=== PATIENT | female | born 1980 | race Caucasian/White ===

== ENCOUNTER 2017-07-24 05:12 | Emergency (ER) | payer MEDICAID ==
[2017-07-24 05:14] VITALS: BMI 26.6
[2017-07-24] MEDS ORDERED: Sodium Chloride 0.9% 1,000 ML IV STA (05:26)
[2017-07-24] MEDS ORDERED: Naloxone 0.4 mg/ml Inj (Adult) IV STA (05:26)
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
[2017-07-24 05:59] LABS: BASO # 0.02 K/mm3 (0.0-2.0); BASO % 0.2 % (0.0-3.0); EOS # 0.1 (0.0-0.7); GRAN # 6.95 (1.4-6.5); GRAN % 66.1 % (50.0-68.0); HEMATOCRIT 38.4 % (36.0-48.0); LYMPH # 2.8 (1.2-3.4); LYMPH % 26.3 % (22.0-35.0); MEAN CELL VOLUME 87.1 fl (80.0-105.0); MEAN CORPUSCULAR HEMOGLOBIN 29.3 pg (25.0-35.0); MEAN CORPUSCULAR HGB CONC 33.6 g/dl (31.0-37.0); MEAN PLATELET VOLUME 8.9 fl (7.0-11.0); MONO # 0.7 (0.1-0.6); MONO % 6.4 % (1.0-6.0); RED CELL DISTRIBUTION WIDTH 13.7 % (11.5-14.5); WHITE BLOOD COUNT 10.5 10^3/ul (4.5-11.0)
[2017-07-24 06:08] LABS: BLOOD UREA NITROGEN 12 mg/dL (7-21); CALCIUM 8.9 mg/dL (8.4-10.5); CARBON DIOXIDE 29 mmol/L (21-33); CHLORIDE 106 mmol/L (98-107); GFR AFRICAN-AMERICAN > 60; GLUCOSE,RANDOM 90 mg/dL (70-110); POTASSIUM 3.9 mmol/L (3.6-5.0); SODIUM 143 mmol/L (132-148)
[2017-07-24 10:05] VITALS: PULSE 75; RESP 20; TEMP 98
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
--- NOTE | 2017-07-24 13:17 | RAD ---
HISTORY: pysch COMPARISON: None available. TECHNIQUE: Chest, one view. FINDINGS: Examination limited by habitus. LUNGS: No focal consolidation. Please note that chest x-ray has limited sensitivity for the detection of pulmonary masses. PLEURA: No significant pleural effusion identified. No definite pneumothorax . CARDIOVASCULAR: Heart size appears within normal limits. OSSEOUS STRUCTURES: No acute osseous abnormality identified. VISUALIZED UPPER ABDOMEN: Unremarkable. OTHER FINDINGS: None. IMPRESSION: No focal consolidation, significant pleural effusion, or definite pneumothorax identified.
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
[2017-07-24 13:21] VITALS: BP 124/71; O2SAT 99
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
== END 2017-07-24 13:55 | disposition home or self-care (01) ==
LOC: ED 05:12
DX: F19.10 Other psychoactive substance abuse, uncomplicated (principal); Z04.1 Encounter for examination and observation following transport accident; V87.7XXA Person injured in collision between other specified motor vehicles (traffic), initial encounter; Y92.410 Unspecified street and highway as the place of occurrence of the external cause
CPT/HCPCS: 70450; 71010; 73503; 73551; 73590; 73700; 80048; 80320; 80324; 80345; 80346; 80349; 80353; 80358; 80361; 82550; 82553; 82948; 83992; 84702; 84703; 85025; 87389; 96360; 99285; J7040

== ENCOUNTER 2017-07-24 15:36 | Inpatient (IN) | payer MEDICAID ==
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
[2017-07-24 18:21] LABS: BASO # 0.02 K/mm3 (0.0-2.0); BASO % 0.2 % (0.0-3.0); EOS # 0.2 (0.0-0.7); EOS % 2.1 % (1.5-5.0); GRAN # 6.41 (1.4-6.5); GRAN % 67.8 % (50.0-68.0); HEMATOCRIT 37.5 % (36.0-48.0); LYMPH # 2.2 (1.2-3.4); LYMPH % 22.8 % (22.0-35.0); MEAN CELL VOLUME 88.4 fl (80.0-105.0); MEAN CORPUSCULAR HEMOGLOBIN 29.5 pg (25.0-35.0); MEAN CORPUSCULAR HGB CONC 33.3 g/dl (31.0-37.0); MEAN PLATELET VOLUME 8.7 fl (7.0-11.0); MONO # 0.7 (0.1-0.6); MONO % 7.1 % (1.0-6.0); WHITE BLOOD COUNT 9.5 10^3/ul (4.5-11.0)
[2017-07-24 19:22] LABS: TROPONIN I < 0.01 ng/mL
[2017-07-24 19:26] LABS: BLOOD UREA NITROGEN 12 mg/dL (7-21); GFR AFRICAN-AMERICAN > 60; GLUCOSE,RANDOM 55 mg/dL (70-110)
[2017-07-24 19:27] LABS: ALB/GLOB RATIO 1.3 (1.1-1.8); ALT/SGPT 120 U/L (7-56); AST/SGOT 154 U/L (14-36); BILIRUBIN,TOTAL 1.2 mg/dL (0.2-1.3); CALCIUM 8.8 mg/dL (8.4-10.5); CARBON DIOXIDE 26 mmol/L (21-33); CHLORIDE 105 mmol/L (98-107); POTASSIUM 3.5 mmol/L (3.6-5.0); SODIUM 141 mmol/L (132-148)
[2017-07-24 19:28] LABS: ALKALINE PHOSPHATASE 120 U/L (38-126)
--- NOTE | 2017-07-24 19:29 | ED PDOC ---
Physical Exam Vital Signs Temp Pulse Resp BP Pulse Ox 07/25/17 06:21 86 16 114/76 99 07/25/17 02:01 98.0 F 83 16 109/62 99 07/24/17 23:00 98.1 F 86 16 127/76 99 07/24/17 19:09 98 F 75 19 129/71 99 07/24/17 18:35 98 F 72 07/24/17 15:37 98 F 87 18 131/66 100 Medical Decision Making ED Course and Treatment: 07/24/17 19:15 The patient was transferred over to [facility] by Dr. Hernandez, the patient is currently pending evaluation by PES. Pt. with a hx. of depression and suicidal ideation. 07/25/17 05:05 Pt seen and evaluated by PES screener. Psychiatrist requesting [facility] screening. 07/25/17 07:[address] Hernandez, pending [facility] PES screening. - Lab Interpretations Lab Results: 07/24/17 18:10 07/24/17 18:10 Lab Results 07/24/17 20:00: Urine HCG, Qual Negative 07/24/17 20:00: Urine Opiates Screen Positive H, Urine Methadone Screen Negative , Ur Barbiturates Screen Negative, Ur Phencyclidine Scrn Negative, Ur Amphetamines Screen Negative, U Benzodiazepines Scrn Positive H, U Oth Cocaine Metabols Negative, U Cannabinoids Screen Negative 07/24/17 20:00: Urine Color Yellow, Urine Appearance Clear, Urine pH 6.0, Ur Specific [place] <= 1.005, Urine Protein Negative, Urine Glucose (UA) Negative, Urine Ketones Negative, Urine Blood Negative, Urine Nitrate Negative, Urine Bilirubin Negative, Urine Urobilinogen 0.2, Ur Leukocyte Esterase Trace H, Urine RBC 0 - 2, Urine WBC 2 - 5, Ur Epithelial Cells 6 - 8, Amorphous Sediment Few, Urine Bacteria Mod 07/24/17 18:10: Alcohol, Quantitative < 10 07/24/17 18:10: Salicylates < 1 L, Acetaminophen < 10.0 L 07/24/17 18:10: Sodium 141, Potassium 3.5 L, Chloride 105, Carbon Dioxide 26, Anion Gap 14, BUN 12, Creatinine 0.7, Est GFR ( Amer) > 60, Est GFR (Non- Af Amer) > 60, Random Glucose 55 L, Calcium 8.8, Total Bilirubin 1.2, AST 154 H , ALT 120 H, Alkaline Phosphatase 120, Lactate Dehydrogenase 906 H, Total Creatine Kinase 2728 H, CK-MB (CK-2) 30.7 H, CK-MB (CK-2) % 1.1 L, Troponin I < 0.01, Total Protein 7.0, Albumin 3.9, Globulin 3.1, Albumin/Globulin Ratio 1.3 07/24/17 18:10: WBC 9.5, RBC 4.24, Hgb 12.5, Hct 37.5, MCV 88.4, MCH 29.5, MCHC 33.3, RDW 14.0, Plt Count 264, MPV 8.7, Gran % 67.8, Lymph % (Auto) 22.8, [place] % (Auto) 7.1 H, Eos % (Auto) 2.1, Baso % (Auto) 0.2, Gran # 6.41, Lymph # 2.2, [place] # 0.7 H, Eos # 0.2, Baso # 0.02 - Medication Orders Current Medication Orders: Discontinued Medications Lorazepam (Ativan) 2 mg IM ONCE ONE PRN Reason: Protocol Stop: 07/24/17 17:14 Last Admin: 07/24/17 17:22 Dose: 2 mg IM Administration Charges Document 07/24/17 17:22 EWO (Rec: 07/24/17 17:23 [facility] [id number]) Injection Site MAR Injection Site Left Vastus Lateralis Charges for Administration # of IM Administrations 1 Ziprasidone (Geodon Inj) 20 mg IM STAT STA PRN Reason: Protocol Stop: 07/24/17 17:14 Last Admin: 07/24/17 17:22 Dose: 20 mg IM Administration Charges Document 07/24/17 17:22 EWO (Rec: 07/24/17 17:22 [facility] [id number]) Injection Site MAR Injection Site Right Vastus Lateralis Charges for Administration # of IM Administrations 1 - Scribe Statement The provider has reviewed the documentation as recorded by the Scribchristina Morton Provider Scribe Attestation: All medical record entries made by the Scribe were at my direction and personally dictated by me. I have reviewed the chart and agree that the record accurately reflects my personal performance of the history, physical exam, medical decision making, and the department course for this patient. I have also personally directed, reviewed, and agree with the discharge instructions and disposition. Disposition/Present on Arrival - Present on Arrival Any Indicators Present on Arrival: No History of DVT/PE: No History of Uncontrolled Diabetes: No Urinary Catheter: No History of Decub. Ulcer: No History Surgical Site Infection Following: None - Disposition Have Diagnosis and Disposition been Completed?: No Diagnosis: Depression Disposition Time: 07:00 Condition: STABLE Referrals: Ezra Sierra Renolan, [Primary Care Provider] - Follow up with primary Forms: [employer] (Icelandic)
[2017-07-24 20:21] LABS: URINE BILIRUBIN NEGATIVE (NEGATIVE); URINE BLOOD NEGATIVE (NEGATIVE); URINE GLUCOSE (UA) NEGATIVE (NEGATIVE); URINE KETONE NEGATIVE (NEGATIVE); URINE LEUKOCYTE ESTERASE TRACE Leu/uL (NEGATIVE); URINE PROTEIN NEGATIVE mg/dL (<30 mg/dL); URINE UROBILINOGEN 0.2 E.U./dL (<1 E.U./dL)
[2017-07-24 20:22] LABS: URINE APPEARANCE CLEAR (CLEAR); URINE COLOR YELLOW (YELLOW)
[2017-07-24 20:34] LABS: URINE BACTERIA MOD (NEG); URINE RBC 0 - 2 /hpf (0-2)
[2017-07-24 20:35] LABS: URINE AMORPHOUS SEDIMENT FEW
--- NOTE | 2017-07-25 07:11 | ED PDOC ---
Physical Exam Vital Signs Reviewed: Yes Vital Signs Temp Pulse Resp BP Pulse Ox 07/25/17 07:40 98.5 F 96 H 18 105/53 L 100 07/25/17 06:21 86 16 114/76 99 07/25/17 02:01 98.0 F 83 16 109/62 99 07/24/17 23:00 98.1 F 86 16 127/76 99 07/24/17 19:09 98 F 75 19 129/71 99 07/24/17 18:35 98 F 72 07/24/17 15:37 98 F 87 18 131/66 100 Temperature: Afebrile Blood Pressure: Normal Pulse: Regular Respiratory Rate: Normal Appearance: Positive for: Well-Appearing, Non-Toxic Pain Distress: None Mental Status: Positive for: Alert and Oriented X 3 Medical Decision Making ED Course and Treatment: 07/25/17 07:05 Case endorsed to me by Dr. Quispe, pending [facility] PES screening. 07/25/17 07:[address] Craig who is aware and agrees with the plan. Accepts patient to remote Telemetry for Rhabdomyolysis. - Lab Interpretations Lab Results: 07/24/17 18:10 07/24/17 18:10 Lab Results 07/24/17 20:00: Urine HCG, Qual Negative 07/24/17 20:00: Urine Opiates Screen Positive H, Urine Methadone Screen Negative , Ur Barbiturates Screen Negative, Ur Phencyclidine Scrn Negative, Ur Amphetamines Screen Negative, U Benzodiazepines Scrn Positive H, U Oth Cocaine Metabols Negative, U Cannabinoids Screen Negative 07/24/17 20:00: Urine Color Yellow, Urine Appearance Clear, Urine pH 6.0, Ur Specific [place] <= 1.005, Urine Protein Negative, Urine Glucose (UA) Negative, Urine Ketones Negative, Urine Blood Negative, Urine Nitrate Negative, Urine Bilirubin Negative, Urine Urobilinogen 0.2, Ur Leukocyte Esterase Trace H, Urine RBC 0 - 2, Urine WBC 2 - 5, Ur Epithelial Cells 6 - 8, Amorphous Sediment Few, Urine Bacteria Mod 07/24/17 18:10: Alcohol, Quantitative < 10 07/24/17 18:10: Salicylates < 1 L, Acetaminophen < 10.0 L 07/24/17 18:10: Sodium 141, Potassium 3.5 L, Chloride 105, Carbon Dioxide 26, Anion Gap 14, BUN 12, Creatinine 0.7, Est GFR ( Amer) > 60, Est GFR (Non- Af Amer) > 60, Random Glucose 55 L, Calcium 8.8, Total Bilirubin 1.2, AST 154 H , ALT 120 H, Alkaline Phosphatase 120, Lactate Dehydrogenase 906 H, Total Creatine Kinase 2728 H, CK-MB (CK-2) 30.7 H, CK-MB (CK-2) % 1.1 L, Troponin I < 0.01, Total Protein 7.0, Albumin 3.9, Globulin 3.1, Albumin/Globulin Ratio 1.3 07/24/17 18:10: WBC 9.5, RBC 4.24, Hgb 12.5, Hct 37.5, MCV 88.4, MCH 29.5, MCHC 33.3, RDW 14.0, Plt Count 264, MPV 8.7, Gran % 67.8, Lymph % (Auto) 22.8, [place] % (Auto) 7.1 H, Eos % (Auto) 2.1, Baso % (Auto) 0.2, Gran # 6.41, Lymph # 2.2, [place] # 0.7 H, Eos # 0.2, Baso # 0.02 I have reviewed the lab results: Yes - Medication Orders Current Medication Orders: Sodium Chloride (Sodium Chloride 0.9%) 1,000 mls @ 100 mls/hr IV .Q10H MOSHE Last Admin: 07/25/17 07:45 Dose: 100 mls/hr eMAR Start Stop Document 07/25/17 07:45 RG (Rec: 07/25/17 07:45 RG [id number]) Intravenous Solution Start Date 07/25/17 Start Time 07:21 End Date 07/25/17 Discontinued Medications Lorazepam (Ativan) 2 mg IM ONCE ONE PRN Reason: Protocol Stop: 07/24/17 17:14 Last Admin: 07/24/17 17:22 Dose: 2 mg IM Administration Charges Document 07/24/17 17:22 EWO (Rec: 07/24/17 17:23 EWO [id number]) Injection Site MAR Injection Site Left Vastus Lateralis Charges for Administration # of IM Administrations 1 Ziprasidone (Geodon Inj) 20 mg IM STAT STA PRN Reason: Protocol Stop: 07/24/17 17:14 Last Admin: 07/24/17 17:22 Dose: 20 mg IM Administration Charges Document 07/24/17 17:22 YESENIA (Rec: 07/24/17 17:22 YESENIA [id number]) Injection Site MAR Injection Site Right Vastus Lateralis Charges for Administration # of IM Administrations 1 - Scribe Statement The provider has reviewed the documentation as recorded by the Bobbyibe Monique Doe Provider Scribe Attestation: All medical record entries made by the Bobbyibe were at my direction and personally dictated by me. I have reviewed the chart and agree that the record accurately reflects my personal performance of the history, physical exam, medical decision making, and the department course for this patient. I have also personally directed, reviewed, and agree with the discharge instructions and disposition. Disposition/Present on Arrival - Present on Arrival Any Indicators Present on Arrival: No History of DVT/PE: No History of Uncontrolled Diabetes: No Urinary Catheter: No History of Decub. Ulcer: No History Surgical Site Infection Following: None - Disposition Have Diagnosis and Disposition been Completed?: Yes Diagnosis: Depression Disposition: HOSPITALIZED Disposition Time: 07:00 Condition: STABLE
[2017-07-25] MEDS ORDERED: Sodium Chloride 0.9% 1,000 ML IV SCH (07:15)
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
[2017-07-25] MEDS: Sodium Chloride 0.9% 1,000 ML IV SCH ×2 (08:45→23:15)
[2017-07-25] MEDS ORDERED: Potassium Chloride 20 mEq ER Tab PO STA (09:12)
[2017-07-25 09:51] LABS: ALB/GLOB RATIO 1.2 (1.1-1.8); ALKALINE PHOSPHATASE 106 U/L (38-126); ALT/SGPT 109 U/L (7-56); AST/SGOT 113 U/L (14-36); BILIRUBIN,TOTAL 0.7 mg/dL (0.2-1.3); BLOOD UREA NITROGEN 12 mg/dL (7-21); CALCIUM 8.6 mg/dL (8.4-10.5); CARBON DIOXIDE 24 mmol/L (21-33); CHLORIDE 107 mmol/L (98-107); GFR AFRICAN-AMERICAN > 60; GLUCOSE,RANDOM 84 mg/dL (70-110); MAGNESIUM 1.7 mg/dL (1.7-2.2); POTASSIUM 3.5 mmol/L (3.6-5.0); SODIUM 140 mmol/L (132-148); TOTAL PROTEIN 6.6 g/dL (5.8-8.3)
[2017-07-25 09:56] LABS: BASO # 0.02 K/mm3 (0.0-2.0); BASO % 0.2 % (0.0-3.0); EOS # 0.3 (0.0-0.7); EOS % 3.2 % (1.5-5.0); GRAN # 5.57 (1.4-6.5); GRAN % 67.9 % (50.0-68.0); HEMATOCRIT 38.3 % (36.0-48.0); LYMPH # 1.7 (1.2-3.4); LYMPH % 20.3 % (22.0-35.0); MEAN CELL VOLUME 87.8 fl (80.0-105.0); MEAN CORPUSCULAR HEMOGLOBIN 28.9 pg (25.0-35.0); MEAN CORPUSCULAR HGB CONC 32.9 g/dl (31.0-37.0); MEAN PLATELET VOLUME 9.4 fl (7.0-11.0); MONO # 0.7 (0.1-0.6); MONO % 8.4 % (1.0-6.0); RED CELL DISTRIBUTION WIDTH 14.2 % (11.5-14.5); WHITE BLOOD COUNT 8.2 10^3/ul (4.5-11.0)
[2017-07-25 12:46] VITALS: BMI 35.6
[2017-07-25 14:14] VITALS: PULSE 100; O2SAT 100
--- NOTE | 2017-07-25 16:10 | CARD ---
APPROVED REPORT EKG Measurement Heart [id number] <Conclusion> Normal sinus rhythm T wave abnormality, nonspecific Prolonged QT Abnormal ECG
[2017-07-25 17:08] VITALS: BP 122/79; RESP 18; TEMP 98.5
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
[2017-07-26] MEDS: Sodium Chloride 0.9% 1,000 ML IV SCH (05:11)
[2017-07-26 07:21] LABS: BASO # 0.01 K/mm3 (0.0-2.0); BASO % 0.1 % (0.0-3.0); EOS # 0.2 (0.0-0.7); EOS % 3.2 % (1.5-5.0); GRAN % 66.6 % (50.0-68.0); LYMPH # 1.7 (1.2-3.4); LYMPH % 22.2 % (22.0-35.0); MEAN CELL VOLUME 87.6 fl (80.0-105.0); MEAN CORPUSCULAR HEMOGLOBIN 28.7 pg (25.0-35.0); MEAN CORPUSCULAR HGB CONC 32.8 g/dl (31.0-37.0); MONO # 0.6 (0.1-0.6); MONO % 7.9 % (1.0-6.0); RED CELL DISTRIBUTION WIDTH 14.2 % (11.5-14.5); WHITE BLOOD COUNT 7.5 10^3/ul (4.5-11.0)
[2017-07-26] MEDS ORDERED: Multivitamin Vitamin B Complex (Nephro-Vite) Tab PO SCH (08:00)
[2017-07-26 08:01] LABS: ALB/GLOB RATIO 1.1 (1.1-1.8); ALKALINE PHOSPHATASE 82 U/L (38-126); ALT/SGPT 98 U/L (7-56); AST/SGOT 92 U/L (14-36); BILIRUBIN,TOTAL 0.5 mg/dL (0.2-1.3); BLOOD UREA NITROGEN 8 mg/dL (7-21); CALCIUM 8.4 mg/dL (8.4-10.5); CARBON DIOXIDE 23 mmol/L (21-33); CHLORIDE 110 mmol/L (98-107); GFR AFRICAN-AMERICAN > 60; GLUCOSE,RANDOM 92 mg/dL (70-110); POTASSIUM 4.4 mmol/L (3.6-5.0); SODIUM 138 mmol/L (132-148)
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
--- NOTE | 2017-07-26 15:30 | RAD ---
HISTORY: r/o pneumonia COMPARISON: 07/24/2017 FINDINGS: LUNGS: No active pulmonary disease. PLEURA: No significant pleural effusion identified, no pneumothorax apparent. CARDIOVASCULAR: Normal. OSSEOUS STRUCTURES: No significant abnormalities. VISUALIZED UPPER ABDOMEN: Normal. OTHER FINDINGS: None. IMPRESSION: No active disease.
--- NOTE | 2017-07-26 20:13 | CP.PCM.DIS ---
<Lopez Asher - Last Filed: 07/26/17 20:01> Provider - Provider Date of Admission: 07/25/17 07:19 Attending physician: Mike Huff MD Consults: Psych: Dr. Romero/Rubi Time Spent in preparation of Discharge (in minutes): 45 Diagnosis - Discharge Diagnosis (1) Rhabdomyolysis Status: Acute (2) Anxiety Status: Acute (3) Suicidal ideation Status: Acute (4) Depression Status: Acute Hospital Course - Lab Results Lab Results: Most Recent Lab Values WBC 7.5 10^3/ul (4.5-11.0) 07/26/17 07:00 RBC 4.11 10^6/uL (3.5-6.1) 07/26/17 07:00 Hgb 11.8 g/dL (12.0-16.0) L 07/26/17 07:00 Hct 36.0 % (36.0-48.0) 07/26/17 07:00 MCV 87.6 fl (80.0-105.0) 07/26/17 07:00 MCH 28.7 pg (25.0-35.0) 07/26/17 07:00 MCHC 32.8 g/dl (31.0-37.0) 07/26/17 07:00 RDW 14.2 % (11.5-14.5) 07/26/17 07:00 Plt Count 280 10^3/uL (120.0-450.0) 07/26/17 07:00 MPV 9.0 fl (7.0-11.0) 07/26/17 07:00 Gran % 66.6 % (50.0-68.0) 07/26/17 07:00 Lymph % (Auto) 22.2 % (22.0-35.0) 07/26/17 07:00 Davidson % (Auto) 7.9 % (1.0-6.0) H 07/26/17 07:00 Eos % (Auto) 3.2 % (1.5-5.0) 07/26/17 07:00 Baso % (Auto) 0.1 % (0.0-3.0) 07/26/17 07:00 Gran # 5.00 (1.4-6.5) 07/26/17 07:00 Lymph # 1.7 (1.2-3.4) 07/26/17 07:00 Davidson # 0.6 (0.1-0.6) 07/26/17 07:00 Eos # 0.2 (0.0-0.7) 07/26/17 07:00 Baso # 0.01 K/mm3 (0.0-2.0) 07/26/17 07:00 Sodium 138 mmol/L (132-148) 07/26/17 07:00 Potassium 4.4 mmol/L (3.6-5.0) 07/26/17 07:00 Chloride 110 mmol/L (98-107) H 07/26/17 07:00 Carbon Dioxide 23 mmol/L (21-33) 07/26/17 07:00 Anion Gap 10 (10-20) 07/26/17 07:00 BUN 8 mg/dL (7-21) 07/26/17 07:00 Creatinine 0.7 mg/dl (0.7-1.2) 07/26/17 07:00 Est GFR ( Amer) > 60 07/26/17 07:00 Est GFR (Non-Af Amer) > 60 07/26/17 07:00 Random Glucose 92 mg/dL (70-110) 07/26/17 07:00 Calcium 8.4 mg/dL (8.4-10.5) 07/26/17 07:00 Magnesium 1.7 mg/dL (1.7-2.2) 07/25/17 07:21 Total Bilirubin 0.5 mg/dL (0.2-1.3) 07/26/17 07:00 AST 92 U/L (14-36) H 07/26/17 07:00 ALT 98 U/L (7-56) H 07/26/17 07:00 Alkaline Phosphatase 82 U/L (38-126) 07/26/17 07:00 Lactate Dehydrogenase 906 U/L (333-699) H 07/24/17 18:10 Total Creatine Kinase 1297 U/L (35-230) H 07/26/17 15:40 CK-MB (CK-2) 3.4 ng/mL (0.0-3.6) 07/26/17 15:40 CK-MB (CK-2) % 1.1 % (2.5-3.0) L 07/24/17 18:10 Troponin I < 0.01 ng/mL 07/24/17 18:10 Total Protein 6.0 g/dL (5.8-8.3) 07/26/17 07:00 Albumin 3.2 g/dL (3.0-4.8) 07/26/17 07:00 Globulin 2.8 gm/dL 07/26/17 07:00 Albumin/Globulin Ratio 1.1 (1.1-1.8) 07/26/17 07:00 Urine Color Yellow (YELLOW) 07/24/17 20:00 Urine Appearance Clear (CLEAR) 07/24/17 20:00 Urine pH 6.0 (4.7-8.0) 07/24/17 20:00 Ur Specific [place] <= 1.005 (1.005-1.035) 07/24/17 20:00 Urine Protein Negative mg/dL (<30 mg/dL) 07/24/17 20:00 Urine Glucose (UA) Negative mg/dL (NEGATIVE) 07/24/17 20:00 Urine Ketones Negative mg/dL (NEGATIVE) 07/24/17 20:00 Urine Blood Negative (NEGATIVE) 07/24/17 20:00 Urine Nitrate Negative (NEGATIVE) 07/24/17 20:00 Urine Bilirubin Negative (NEGATIVE) 07/24/17 20:00 Urine Urobilinogen 0.2 E.U./dL (<1 E.U./dL) 07/24/17 20:00 Ur Leukocyte Esterase Trace Kathy/uL (NEGATIVE) H 07/24/17 20:00 Urine RBC 0 - 2 /hpf (0-2) 07/24/17 20:00 Urine WBC 2 - 5 /hpf (0-6) 07/24/17 20:00 Ur Epithelial Cells 6 - 8 /hpf (0-5) 07/24/17 20:00 Amorphous Sediment Few 07/24/17 20:00 Urine Bacteria Mod (NEG) 07/24/17 20:00 Urine HCG, Qual Negative (NEGATIVE) 07/24/17 20:00 Salicylates < 1 mg/dL (2.0-20.0) L 07/24/17 18:10 Urine Opiates Screen Positive (NEGATIVE) H 07/24/17 20:00 Urine Methadone Screen Negative (NEGATIVE) 07/24/17 20:00 Acetaminophen < 10.0 ug/ml (10.0-20.0) L 07/24/17 18:10 Ur Barbiturates Screen Negative (NEGATIVE) 07/24/17 20:00 Ur Phencyclidine Scrn Negative (NEGATIVE) 07/24/17 20:00 Ur Amphetamines Screen Negative (NEGATIVE) 07/24/17 20:00 U Benzodiazepines Scrn Positive (NEGATIVE) H 07/24/17 20:00 U Oth Cocaine Metabols Negative (NEGATIVE) 07/24/17 20:00 U Cannabinoids Screen Negative (NEGATIVE) 07/24/17 20:00 Alcohol, Quantitative < 10 mg/dL (0-10) 07/24/17 18:10 Hepatitis A IgM Ab Negative (NEGATIVE) 07/25/17 07:21 Hep Bs Antigen Negative (NEGATIVE) 07/25/17 07:21 Hep B Core IgM Ab Negative (NEGATIVE) 07/25/17 07:21 Hepatitis C Antibody Reactive (NEGATIVE) 07/25/17 07:21 - Hospital Course Hospital Course: 36 yo F with PMH of anxiety, depression, chronic back pain due to herniated disc presented with suicidal ideation, having written a suicide note, noted to also have transaminitis and rhabdomyolysis, for which she was admitted and receiving treatment. Throughout her hospitalization, patient was requesting to leave AMA, pulling her lines and removing her monitor, but was not allowed to leave because of the history of suicidal ideation. [facility] psychiat[facility] was consulted for screening for involuntary admission pending medical clearance. Today, [facility] determined that she did not require involuntary admission, and she was deemed competent to make her own decisions. Patient again requested to leave AMA. Prior to leaving, she was noted to have a slightly swollen tongue, and was given benadryl 50mg PO, in case of an allergic reaction. She was instructed on the benefits of staying for further treatment, versus the potential consequences of leaving, including worsening renal failure, anaphylaxis, withdrawal, and other complications of her medical conditions, up to and including . Patient verbalized understanding and insisted on signing out against medical advice. Patient advised to follow up with her PCP and return to ER for any new or worsening concerns. Discharge Exam - Head Exam Head Exam: ATRAUMATIC, NORMAL INSPECTION, NORMOCEPHALIC - Eye Exam Eye Exam: EOMI, Normal appearance - ENT Exam ENT Exam: Mucous Membranes Moist Additional comments: Patient noted to be mumbling, with slightly swollen tongue. Tolerating secretions well, swallowing her food throughout the day. No respiratory distress. - Neck Exam Neck exam: Full Rom, Normal Inspection - Respiratory Exam Respiratory Exam: Clear to PA & Lateral, NORMAL BREATHING PATTERN - Cardiovascular Exam Cardiovascular Exam: RRR, +S1, +S2 - GI/Abdominal Exam GI & Abdominal Exam: Normal Bowel Sounds, Soft. absent: Tenderness - Extremities Exam Extremities exam: pedal edema (nonpitting) - Back Exam Back exam: absent: CVA tenderness (L), CVA tenderness (R) - Neurological Exam Neurological exam: Alert, Oriented x3 Additional comments: Appropriate insight and judgement - Psychiatric Exam Psychiatric exam: Agitated, Anxious, Normal Affect - Skin Skin Exam: Dry, Intact Discharge Plan - Follow Up Plan Condition: GUARDED Disposition: AGAINST MEDICAL ADVICE <Mike Huff - Last Filed: 07/27/17 07:19> Provider - Provider Date of Admission: 07/25/17 07:19 Attending physician: Mike Huff [facility] Course - Lab Results Lab Results: Most Recent Lab Values WBC 7.5 10^3/ul (4.5-11.0) 07/26/17 07:00 RBC 4.11 10^6/uL (3.5-6.1) 07/26/17 07:00 Hgb 11.8 g/dL (12.0-16.0) L 07/26/17 07:00 Hct 36.0 % (36.0-48.0) 07/26/17 07:00 MCV 87.6 fl (80.0-105.0) 07/26/17 07:00 MCH 28.7 pg (25.0-35.0) 07/26/17 07:00 MCHC 32.8 g/dl (31.0-37.0) 07/26/17 07:00 RDW 14.2 % (11.5-14.5) 07/26/17 07:00 Plt Count 280 10^3/uL (120.0-450.0) 07/26/17 07:00 MPV 9.0 fl (7.0-11.0) 07/26/17 07:00 Gran % 66.6 % (50.0-68.0) 07/26/17 07:00 Lymph % (Auto) 22.2 % (22.0-35.0) 07/26/17 07:00 Davidson % (Auto) 7.9 % (1.0-6.0) H 07/26/17 07:00 Eos % (Auto) 3.2 % (1.5-5.0) 07/26/17 07:00 Baso % (Auto) 0.1 % (0.0-3.0) 07/26/17 07:00 Gran # 5.00 (1.4-6.5) 07/26/17 07:00 Lymph # 1.7 (1.2-3.4) 07/26/17 07:00 Davidson # 0.6 (0.1-0.6) 07/26/17 07:00 Eos # 0.2 (0.0-0.7) 07/26/17 07:00 Baso # 0.01 K/mm3 (0.0-2.0) 07/26/17 07:00 Sodium 138 mmol/L (132-148) 07/26/17 07:00 Potassium 4.4 mmol/L (3.6-5.0) 07/26/17 07:00 Chloride 110 mmol/L (98-107) H 07/26/17 07:00 Carbon Dioxide 23 mmol/L (21-33) 07/26/17 07:00 Anion Gap 10 (10-20) 07/26/17 07:00 BUN 8 mg/dL (7-21) 07/26/17 07:00 Creatinine 0.7 mg/dl (0.7-1.2) 07/26/17 07:00 Est GFR ( Amer) > 60 07/26/17 07:00 Est GFR (Non-Af Amer) > 60 07/26/17 07:00 Random Glucose 92 mg/dL (70-110) 07/26/17 07:00 Calcium 8.4 mg/dL (8.4-10.5) 07/26/17 07:00 Magnesium 1.7 mg/dL (1.7-2.2) 07/25/17 07:21 Total Bilirubin 0.5 mg/dL (0.2-1.3) 07/26/17 07:00 AST 92 U/L (14-36) H 07/26/17 07:00 ALT 98 U/L (7-56) H 07/26/17 07:00 Alkaline Phosphatase 82 U/L (38-126) 07/26/17 07:00 Lactate Dehydrogenase 906 U/L (333-699) H 07/24/17 18:10 Total Creatine Kinase 1297 U/L (35-230) H 07/26/17 15:40 CK-MB (CK-2) 3.4 ng/mL (0.0-3.6) 07/26/17 15:40 CK-MB (CK-2) % 1.1 % (2.5-3.0) L 07/24/17 18:10 Troponin I < 0.01 ng/mL 07/24/17 18:10 Total Protein 6.0 g/dL (5.8-8.3) 07/26/17 07:00 Albumin 3.2 g/dL (3.0-4.8) 07/26/17 07:00 Globulin 2.8 gm/dL 07/26/17 07:00 Albumin/Globulin Ratio 1.1 (1.1-1.8) 07/26/17 07:00 Urine Color Yellow (YELLOW) 07/24/17 20:00 Urine Appearance Clear (CLEAR) 07/24/17 20:00 Urine pH 6.0 (4.7-8.0) 07/24/17 20:00 Ur Specific [place] <= 1.005 (1.005-1.035) 07/24/17 20:00 Urine Protein Negative mg/dL (<30 mg/dL) 07/24/17 20:00 Urine Glucose (UA) Negative mg/dL (NEGATIVE) 07/24/17 20:00 Urine Ketones Negative mg/dL (NEGATIVE) 07/24/17 20:00 Urine Blood Negative (NEGATIVE) 07/24/17 20:00 Urine Nitrate Negative (NEGATIVE) 07/24/17 20:00 Urine Bilirubin Negative (NEGATIVE) 07/24/17 20:00 Urine Urobilinogen 0.2 E.U./dL (<1 E.U./dL) 07/24/17 20:00 Ur Leukocyte Esterase Trace Kathy/uL (NEGATIVE) H 07/24/17 20:00 Urine RBC 0 - 2 /hpf (0-2) 07/24/17 20:00 Urine WBC 2 - 5 /hpf (0-6) 07/24/17 20:00 Ur Epithelial Cells 6 - 8 /hpf (0-5) 07/24/17 20:00 Amorphous Sediment Few 07/24/17 20:00 Urine Bacteria Mod (NEG) 07/24/17 20:00 Urine HCG, Qual Negative (NEGATIVE) 07/24/17 20:00 Salicylates < 1 mg/dL (2.0-20.0) L 07/24/17 18:10 Urine Opiates Screen Positive (NEGATIVE) H 07/24/17 20:00 Urine Methadone Screen Negative (NEGATIVE) 07/24/17 20:00 Acetaminophen < 10.0 ug/ml (10.0-20.0) L 07/24/17 18:10 Ur Barbiturates Screen Negative (NEGATIVE) 07/24/17 20:00 Ur Phencyclidine Scrn Negative (NEGATIVE) 07/24/17 20:00 Ur Amphetamines Screen Negative (NEGATIVE) 07/24/17 20:00 U Benzodiazepines Scrn Positive (NEGATIVE) H 07/24/17 20:00 U Oth Cocaine Metabols Negative (NEGATIVE) 07/24/17 20:00 U Cannabinoids Screen Negative (NEGATIVE) 07/24/17 20:00 Alcohol, Quantitative < 10 mg/dL (0-10) 07/24/17 18:10 Hepatitis A IgM Ab Negative (NEGATIVE) 07/25/17 07:21 Hep Bs Antigen Negative (NEGATIVE) 07/25/17 07:21 Hep B Core IgM Ab Negative (NEGATIVE) 07/25/17 07:21 Hepatitis C Antibody Reactive (NEGATIVE) 07/25/17 07:21 Discharge Plan - Follow Up Plan Patient education suggested?: Yes Attending/Attestation - Attestation I have personally seen and examined this patient.: Yes I have fully participated in the care of the patient.: Yes I have reviewed all pertinent clinical information, including history, physical exam and plan: Yes Notes (Text): 07/27/17 07:10 36 year old female with past medical history of anxiety and depression who was brought in for evaluation of suicidal ideation. Patient was admitted to the medical floor for rhabdomyolysis and elevated LFTs. She was started on iv fluids. Patient was seen by psychiatrist. She admitted to feeling depressed because of a recent loss (friend). However she adamantly denied feeing suicidal or thoughts of harming herself. She was seen by [facility] screener who determined she did not require involuntary admission. Patient refused to stay for medical care and signed out AMA. She was counselled on risks of continued substance and alcohol abuse. She was advised to follow up with her pmd and psychiatrist. Mike Huff MD Hospitalist.
--- NOTE | 2017-07-27 09:17 | CP.PCM.PCO ---
Physician Communication Note - Physician Communication Note Physician Communication Note: [place] [facility] found to be not comm[place]able, pt was d/c AMA
== END 2017-07-26 20:25 | disposition left against medical advice (07) | DRG 248 ==
LOC: ED 15:36 → ERH 07-25 07:19 → 3RNO 07-25 17:36
PROVIDERS: ADMIT Internal Medicine; ATTEND Internal Medicine
DX: M62.82 Rhabdomyolysis (principal); R45.851 Suicidal ideations; E87.6 Hypokalemia; W19.XXXA Unspecified fall, initial encounter; F10.10 Alcohol abuse, uncomplicated; F31.9 Bipolar disorder, unspecified; F43.22 Adjustment disorder with anxiety; F17.210 Nicotine dependence, cigarettes, uncomplicated; Z90.49 Acquired absence of other specified parts of digestive tract; Z98.84 Bariatric surgery status; Z90.721 Acquired absence of ovaries, unilateral; Z88.0 Allergy status to penicillin; R40.2412 Glasgow coma scale score 13-15, at arrival to emergency department; M25.571 Pain in right ankle and joints of right foot; R74.0 Nonspecific elevation of levels of transaminase and lactic acid dehydrogenase [LDH]; Z78.1 Physical restraint status; Z56.0 Unemployment, unspecified

== ENCOUNTER 2017-07-31 18:05 | Emergency (ER) | payer MEDICAID ==
[2017-07-31 18:05] VITALS: BMI 35.6
[2017-07-31 18:16] VITALS: TEMP 98.7
[2017-07-31 18:18] VITALS: RESP 18
[2017-07-31] MEDS ORDERED: Lactated Ringer's 1,000 ML IV SCH (19:45)
[2017-07-31 19:48] VITALS: BP 115/60; PULSE 88; O2SAT 99
--- NOTE | 2017-07-31 20:13 | ED PDOC ---
Arrival/HPI - General Chief Complaint: Pain, Chronic Time Seen by Provider: 07/31/17 18:32 Historian: Patient, Other (records) - History of Present Illness Narrative History of Present Illness (Text): 36yoF, who recently signed out from hospital. pt newly dx hepatitis c reactive. pt stated went to for friend passing. now having generalized muscle pain. sinus congestion. no n/v/ramirez/dizziness/sob/chest pain/abd pain/numbness/ tingling/loss of limb function/dysuria/thoughts to harm self or others or hallucinations. 07/31/17 20:10 Past Medical History - Provider Review Nursing Documentation Reviewed: Yes - Travel History Have you recently traveled outside [place] w/in the past 3 mons?: No - Past History Past History: No Previous - Infectious Disease Hx of Infectious Diseases: None - Tetanus Immunization Tetanus Immunization: Unknown - Cardiac Hx Cardiac Disorders: No Hx Hypertension: No - Pulmonary Hx Respiratory Disorders: No - Neurological Hx Neurological Disorder: No - HEENT Hx HEENT Disorder: No - Renal Hx Renal Disorder: No - Endocrine/Metabolic Hx Endocrine Disorders: No - Hematological/Oncological Hx Blood Disorders: Yes Hx AIDS: Yes Hx Hepatitis C: Yes - Integumentary Hx Dermatological Disorder: No - Musculoskeletal/Rheumatological Hx Musculoskeletal Disorders: Yes Hx Herniated Disk: Yes - Gastrointestinal Hx Gastrointestinal Disorders: Yes Hx Gall Bladder Disease: Yes - Genitourinary/Gynecological Hx Genitourinary Disorders: Yes Other/Comment: OVARIAN CYST - Psychiatric Hx Psychophysiologic Disorder: Yes Hx Anxiety: Yes Hx Post Traumatic Stress Disorder: Yes Hx Substance Use: No - Surgical History Hx Cholecystectomy: Yes Hx Gastric Bypass Surgery: Yes Hx Orthopedic Surgery: Yes Other/Comment: Oophorectomy, liver surgery - Anesthesia Hx Anesthesia: Yes Family/Social History - Physician Review Nursing Documentation Reviewed: Yes Family/Social History: No Known Family HX Smoking Status: Never Smoked Hx Alcohol Use: No Hx Substance Use: No Allergies/Home Meds Allergies/Adverse Reactions: Allergies No Known Allergies Allergy (Verified 07/31/17 18:06) Home Medications: Home Meds Medication Instructions Recorded Confirmed ALPRAZolam [Xanax] 1 mg PO TID 07/31/17 07/31/17 DULoxetine [Cymbalta] 60 mg PO BID 07/31/17 07/31/17 Trazodone HCl [Trazodone HCl] 150 mg PO HS 07/31/17 07/31/17 Review of Systems - Review of Systems Constitutional: Normal Eyes: Normal ENT: Sinus Congestion Respiratory: Normal Cardiovascular: Normal Gastrointestinal: Normal Genitourinary Female: Normal Musculoskeletal: Arthralgias Skin: Normal Neurological: Normal Endocrine: Normal Hemo/Lymphatic: Normal Psychiatric: Normal Physical Exam Vital Signs Reviewed: Yes Vital Signs Temp Pulse Resp BP Pulse Ox 07/31/17 19:37 88 18 115/60 99 07/31/17 18:17 98.7 F 95 H 18 109/52 L 98 07/31/17 18:07 98.7 F 95 H 17 109/52 L 97 Temperature: Afebrile Blood Pressure: Normal Pulse: Regular Respiratory Rate: Normal Appearance: Positive for: Well-Appearing Pain Distress: None Mental Status: Positive for: Alert and Oriented X 3 - Systems Exam Head: Present: Atraumatic, Normocephalic Pupils: Present: PERRL Extroacular Muscles: Present: EOMI Conjunctiva: Present: Normal Ears: Present: Normal Mouth: Present: Moist Mucous Membranes Pharnyx: Present: Normal Nose (Internal): Present: Clear Mucous Neck: Present: Normal Range of Motion Respiratory/Chest: Present: Clear to Auscultation, Good Air Exchange Cardiovascular: Present: Regular Rate and Rhythm Abdomen: No: Tenderness, Distention, Normal Bowel Sounds, Peritoneal Signs, Rebound, Guarding, McBurney's Point Tender, Rovsing's Sign Present, Hernias, Feeding Tubes, Ostomy Tubes, Mass/Organomegaly, Scars, Other Back: Present: Normal Inspection Upper Extremity: Present: Normal Inspection Lower Extremity: Present: Normal Inspection Neurological: Present: GCS=15, CN II-XII Intact Skin: Present: Warm, Normal Color Psychiatric: Present: Alert, Oriented x 3, Normal Insight, Normal Concentration , Other (denies suicidal/homicidal/hallucinations.) Medical Decision Making ED Course and Treatment: 07/31/17 20:14 pt wanted to leave prior to lab evaluation. cautioned for missed diagnosis/ complications/. pt understood. - Medication Orders Current Medication Orders: Discontinued Medications Lactated Ringer's (Lactated Ringer's) 1,000 mls @ 999 mls/hr IV .[id number] MOSHE Disposition/Present on Arrival - Present on Arrival Any Indicators Present on Arrival: No History of DVT/PE: No History of Uncontrolled Diabetes: No Urinary Catheter: No History of Decub. Ulcer: No History Surgical Site Infection Following: None - Disposition Have Diagnosis and Disposition been Completed?: Yes Diagnosis: Sinus congestion Disposition: AGAINST MEDICAL ADVICE Disposition Time: 20:15 Condition: STABLE Referrals: Arianna Boucher MD [Primary Care Provider] - Follow up with primary Forms: PrivacyProtector (Pashto)
== END 2017-07-31 19:52 | disposition left against medical advice (07) ==
LOC: ED 18:05
DX: R09.81 Nasal congestion (principal); Z98.84 Bariatric surgery status

== ENCOUNTER 2017-10-13 13:55 | Emergency (ER) | payer BC, MEDICAID ==
[2017-10-13 13:56] VITALS: BMI 35.6
[2017-10-13] MEDS ORDERED: Multivitamin (MVI) 10 ML, Thiamine 100 MG, Folic Acid 1 MG in Sodium Chloride 0.9% 1,00... IV ONE (14:11)
--- NOTE | 2017-10-13 14:15 | ED PDOC ---
Arrival/HPI - General Chief Complaint: Substance Abuse Time Seen by Provider: 10/13/17 13:57 Historian: Patient - History of Present Illness Narrative History of Present Illness (Text): 10/13/17 14:19 A 36 year old female, whose past medical history includes HIV, Hepatitis C and heroine abuse, was brought in by EMS to the emergency department for alcohol intoxication and heroine use. Street medics were called on the street corner, patient was found intoxicated and used 5 bags of heroin. Patient is uncooperative and has slurred speech. Patient was passing out when not stimulated. Symptom Onset: Sudden Symptom Course: Unchanged Activities at Onset: Rest Context: Street Past Medical History - Provider Review Nursing Documentation Reviewed: Yes - Past History Past History: No Previous - Infectious Disease Hx of Infectious Diseases: None - Tetanus Immunization Tetanus Immunization: Unknown - Cardiac Hx Cardiac Disorders: No - Pulmonary Hx Respiratory Disorders: No - Neurological Hx Neurological Disorder: No - HEENT Hx HEENT Disorder: No - Renal Hx Renal Disorder: No - Endocrine/Metabolic Hx Endocrine Disorders: No - Hematological/Oncological Hx Blood Disorders: Yes Hx AIDS: Yes Hx Hepatitis C: Yes - Integumentary Hx Dermatological Disorder: No - Musculoskeletal/Rheumatological Hx Musculoskeletal Disorders: Yes Hx Herniated Disk: Yes - Gastrointestinal Hx Gastrointestinal Disorders: Yes Hx Gall Bladder Disease: Yes - Genitourinary/Gynecological Hx Genitourinary Disorders: Yes Other/Comment: OVARIAN CYST - Psychiatric Hx Psychophysiologic Disorder: Yes Hx Anxiety: Yes Hx Post Traumatic Stress Disorder: Yes Hx Substance Use: Yes - Surgical History Hx Cholecystectomy: Yes Hx Gastric Bypass Surgery: Yes Hx Orthopedic Surgery: Yes Other/Comment: Oophorectomy, liver surgery - Anesthesia Hx Anesthesia: Yes Family/Social History - Physician Review Nursing Documentation Reviewed: Yes Family/Social History: No Known Family HX Smoking Status: Never Smoked Hx Alcohol Use: No Hx Substance Use: Yes Substance used: heroin Allergies/Home Meds Allergies/Adverse Reactions: Allergies No Known Allergies Allergy (Verified 10/13/17 14:01) Home Medications: Home Meds Medication Instructions Recorded Confirmed Unobtainable 10/13/17 10/13/17 Review of Systems - Physician Review All systems were reviewed & negative as marked: Yes - Review of Systems Systems not reviewed;Unavailable: Uncooperative (and intoxicated) Neurological: Speech Changes (slurred speech) Physical Exam Vital Signs Reviewed: Yes Vital Signs Temp Pulse Resp BP Pulse Ox 10/13/17 13:56 98 F 62 18 123/70 100 Appearance: Positive for: Comfortable, Other (intoxicated) Pain Distress: None Mental Status: Positive for: other (uncooperative) - Systems Exam Head: Present: Atraumatic, Normocephalic Pupils: Present: Pinpoint, Other (nystagmus) Extroacular Muscles: Present: EOMI Conjunctiva: Present: Normal Mouth: Present: Moist Mucous Membranes Neck: Present: Normal Range of Motion Respiratory/Chest: Present: Clear to Auscultation, Good Air Exchange. No: Respiratory Distress, Accessory Muscle Use Cardiovascular: Present: Regular Rate and Rhythm, Normal S1, S2. No: Murmurs Abdomen: Present: Normal Bowel Sounds. No: Tenderness, Distention, Peritoneal Signs Upper Extremity: Present: Normal Inspection. No: Cyanosis, Edema Lower Extremity: Present: Normal Inspection. No: Edema Neurological: Present: GCS=15, CN II-XII Intact, Other (slurred speech) Skin: Present: Warm, Dry, Normal Color, Other (track carnes). No: Rashes Psychiatric: Present: Alert, Intoxicated Medical Decision Making ED Course and Treatment: 10/13/17 14:12 Impression: A 36 year old female with alcohol intoxication and heroin use. Plan: -- EKG -- chest xray -- labs -- Reassess and disposition Prior Visits: Notes and results from previous visits were reviewed. Patient was last seen in the emergency department on generalized muscle pain and sinus congestion. Progress Notes: 10/13/17 14:23 EKG: Ordered, reviewed, and independently interpreted the EKG. Rate : 81 BPM Rhythm : NSR Interpretation : Normal intervals, normal axis 10/13/17 16:36 Chest X-ray has no active disease and patient is to be discharged. - Lab Interpretations Lab Results: 10/13/17 14:10 10/13/17 14:10 Lab Results 10/13/17 15:27: Urine HCG, Qual Negative 10/13/17 14:30: Urine Opiates Screen Positive H, Urine Methadone Screen Negative , Ur Barbiturates Screen Negative, Ur Phencyclidine Scrn Negative, Ur Amphetamines Screen Negative, U Benzodiazepines Scrn Positive, U Oth Cocaine Metabols Positive H, U Cannabinoids Screen Negative 10/13/17 14:10: Beta HCG, Quant < 2.39, Alcohol, Quantitative < 10 10/13/17 14:10: Sodium 141, Potassium 4.0, Chloride 105, Carbon Dioxide 20 L, Anion Gap 19, BUN 19, Creatinine 0.8, Est GFR ( Amer) > 60, Est GFR (Non- Af Amer) > 60, Random Glucose 142 H, Calcium 9.8, Total Bilirubin 0.8, AST 77 H , ALT 100 H, Alkaline Phosphatase 142 H D, Lactate Dehydrogenase 674, Total Creatine Kinase 169, Troponin I < 0.01, Total Protein 7.9, Albumin 4.5, Globulin 3.4, Albumin/Globulin Ratio 1.3 10/13/17 14:10: PT 10.9, INR 0.96 10/13/17 14:10: WBC 9.7 D, RBC 4.43, Hgb 13.3, Hct 40.0, MCV 90.3, MCH 30.0, MCHC 33.3, RDW 13.8, Plt Count 301, MPV 9.6, Gran % 59.9, Lymph % (Auto) 30.6, Day % (Auto) 6.3 H, Eos % (Auto) 3.0, Baso % (Auto) 0.2, Gran # 5.82, Lymph # ( Auto) 3.0, Day # (Auto) 0.6, Eos # (Auto) 0.3, Baso # (Auto) 0.02 I have reviewed the lab results: Yes - RAD Interpretation Radiology Orders: 10/13/17 14:04 CHEST PORTABLE [RAD] Stat - EKG Interpretation Interpreted by ED Physician: Yes Type: 12 lead EKG - Medication Orders Current Medication Orders: Discontinued Medications Multivitamins/Vitamin C 10 ml/Thiamine HCl 100 mg/ Folic Acid 1 mg/ Sodium Chloride 1,011.2 mls @ 1,000 mls/hr IV .Q1H1M ONE Stop: 10/13/17 15:11 - PA / SENIOR CLIMATE ADVISOR / Resident Statement MD/DO has reviewed & agrees with the documentation as recorded. - Scribe Statement The provider has reviewed the documentation as recorded by the Bobbyibchristina Pierson Provider Scribe Attestation: All medical record entries made by the Scribe were at my direction and personally dictated by me. I have reviewed the chart and agree that the record accurately reflects my personal performance of the history, physical exam, medical decision making, and the department course for this patient. I have also personally directed, reviewed, and agree with the discharge instructions and disposition. Disposition/Present on Arrival - Present on Arrival Any Indicators Present on Arrival: No History of DVT/PE: No History of Uncontrolled Diabetes: No Urinary Catheter: No History of Decub. Ulcer: No History Surgical Site Infection Following: None - Disposition Have Diagnosis and Disposition been Completed?: Yes Diagnosis: Cocaine abuse, Heroin use, Benzodiazepine abuse Disposition: HOME/ ROUTINE Disposition Time: 16:38 Patient Plan: Discharge Patient Problems: Current Active Problems Problem Status Onset Cocaine abuse Acute Heroin use Acute Benzodiazepine abuse Acute Condition: GOOD Discharge Instructions (ExitCare): Cocaine Use Disorder, Drug Abuse and Drug Addiction (DC), Prescription Drug Misuse, Drug Abuse Treatment Additional Instructions: Juli- Please take better care of yourself. Best- Dr. Yinka Lopes Referrals: Arianna Boucher MD [Primary Care Provider] - Follow up with primary Forms: [employer] ([place])
[2017-10-13 14:34] LABS: BASO # 0.02 K/mm3 (0.0-2.0); BASO % 0.2 % (0.0-3.0); EOS # 0.3 (0.0-0.7); GRAN # 5.82 (1.4-6.5); GRAN % 59.9 % (50.0-68.0); HEMOGLOBIN 13.3 g/dL (12.0-16.0); LYMPH % 30.6 % (22.0-35.0); MEAN CELL VOLUME 90.3 fl (80.0-105.0); MEAN CORPUSCULAR HGB CONC 33.3 g/dl (31.0-37.0); MEAN PLATELET VOLUME 9.6 fl (7.0-11.0); MONO # 0.6 (0.1-0.6); MONO % 6.3 % (1.0-6.0); RBC 4.43 10^6/uL (3.5-6.1); RED CELL DISTRIBUTION WIDTH 13.8 % (11.5-14.5); WHITE BLOOD COUNT 9.7 10^3/ul (4.5-11.0)
[2017-10-13 14:53] LABS: ALB/GLOB RATIO 1.3 (1.1-1.8); ALBUMIN 4.5 g/dL (3.0-4.8); ALT/SGPT 100 U/L (7-56); AST/SGOT 77 U/L (14-36); BLOOD UREA NITROGEN 19 mg/dL (7-21); CALCIUM 9.8 mg/dL (8.4-10.5); GFR AFRICAN-AMERICAN > 60; GFR NON-AFRICAN AMERICAN > 60; INR 0.96 (0.93-1.08); PROTHROMBIN TIME 10.9 SECONDS (9.4-12.5)
[2017-10-13 14:55] VITALS: RESP 18
[2017-10-13 15:04] LABS: TROPONIN I < 0.01 ng/mL
[2017-10-13 15:47] LABS: BARBITURATES, UR NEGATIVE (NEGATIVE); BENZODIAZEPINES, UR POSITIVE (NEGATIVE); OPIATES, UR POSITIVE (NEGATIVE); PHENCYCLIDINE, UR NEGATIVE (NEGATIVE)
[2017-10-13 16:47] VITALS: BP 124/68; PULSE 83; TEMP 98.6; O2SAT 98
--- NOTE | 2017-10-13 18:10 | RAD ---
HISTORY: heroin overdose COMPARISON: Chest x-ray performed 07/26/17 TECHNIQUE: Chest, one view. FINDINGS: Examination limited by habitus and hypoinflation. LUNGS: No focal consolidation. Please note that chest x-ray has limited sensitivity for the detection of pulmonary masses. PLEURA: No significant pleural effusion identified. No definite pneumothorax . CARDIOVASCULAR: The cardiomediastinal silhouette appears within normal limits of size. OSSEOUS STRUCTURES: No acute osseous abnormality identified. VISUALIZED UPPER ABDOMEN: Unremarkable. OTHER FINDINGS: None. IMPRESSION: No focal consolidation, significant pleural effusion, or definite pneumothorax.
--- NOTE | 2017-10-13 20:47 | CARD ---
APPROVED REPORT EKG Measurement Heart [id number] <Conclusion> Normal sinus rhythm Minimal voltage criteria for LVH, may be normal variant Borderline ECG
== END 2017-10-13 17:00 | disposition home or self-care (01) ==
LOC: ED 13:55
DX: F14.10 Cocaine abuse, uncomplicated (principal); F11.90 Opioid use, unspecified, uncomplicated; F13.10 Sedative, hypnotic or anxiolytic abuse, uncomplicated